=== PATIENT | male | born 1995 | race African-American/Black ===

== ENCOUNTER 2017-09-06 18:08 | Emergency (ER) | payer SELFPAY ==
[~2017-09-06] VITALS: Ht 185.4 cm; Wt 59.6 kg
[2017-09-06] MEDS ORDERED: HYDROcodone/APAP 5/325 TABLET PO STA (19:04)
[2017-09-06] MEDS ORDERED: HYDROcodone/APAP 5/325 TABLET ONE (19:07)
[2017-09-06] MEDS ORDERED: IBUPROFEN 200 MG TABLET ONE (19:07)
[2017-09-06 19:25] VITALS: BP 124/81
[2017-09-06] MEDS ORDERED: IBUPROFEN 200 MG TABLET PO ONE (19:30)
== END 2017-09-06 19:28 | disposition home or self-care (01) ==
LOC: ED 19:20
DX: K08.89 Other specified disorders of teeth and supporting structures (principal); F17.210 Nicotine dependence, cigarettes, uncomplicated
CPT/HCPCS: 99283

== ENCOUNTER 2017-10-07 18:04 | Emergency (ER) | payer SELFPAY ==
[~2017-10-07] VITALS: Ht 185.4 cm; Wt 73.0 kg
[2017-10-07] MEDS ORDERED: BACITRACIN ZINC OINT 500U/GM, 0.9 GM ONE (18:25)
[2017-10-07] MEDS ORDERED: DIPH,PERTUSS(ACELL),TET VAC/PF 0.5 ML IM-VACC ONE ×2 (18:26→18:30)
[2017-10-07 18:43] LABS: BASOPHILS # (AUTO) 0.01 x10^3/uL (0-0.1); BASOPHILS % (AUTO) 0 % (0-1); EOSINOPHILS # (AUTO) 0.07 x10^3/uL (0-0.4); EOSINOPHILS % (AUTO) 1 % (1-7); LYMPHOCYTES # (AUTO) 1.13 x10^3/uL (1-3.4); LYMPHOCYTES % (AUTO) 15 % (22-44); MD NO; MEAN CORPUSCULAR HEMOGLOBIN 31.2 pg (27.5-34.5); MEAN CORPUSCULAR HGB CONC 33.6 g/dL (33.2-36.2); MEAN CORPUSCULAR VOLUME 92.9 fL (81-97); MONOCYTES # (AUTO) 0.07 x10^3/uL (0.2-0.8); MONOCYTES % (AUTO) 1 % (2-9); NEUTROPHILS # (AUTO) 6.08 x10^3/uL (1.8-6.8); NEUTROPHILS % (AUTO) 83 % (42-75); PLATELET COUNT 278 x10^3/uL (130-400); RED BLOOD COUNT 5.04 x10^6/uL (4.38-5.82); RED CELL DISTRIBUTION WIDTH 14.1 % (9.4-14.8)
[2017-10-07 18:55] LABS: ALBUMIN 4.4 g/dL (3.4-5.0); ANION GAP 12 mmol/L (5-15); CALCIUM 9.2 mg/dL (8.5-10.1); CHLORIDE 102 mmol/L (98-107)
[2017-10-07 18:56] LABS: CREATININE 1.18 mg/dL (0.7-1.3)
[2017-10-07] MEDS ORDERED: ACETAMINOPHEN 500 MG TABLET PO ONE (19:30)
[2017-10-07] MEDS ORDERED: ACETAMINOPHEN 500 MG TABLET ONE (19:30)
[2017-10-07 19:38] VITALS: BP 129/67
== END 2017-10-07 19:39 | disposition home or self-care (01) ==
LOC: ED 19:22
DX: S00.81XA Abrasion of other part of head, initial encounter (principal); E16.2 Hypoglycemia, unspecified; F17.210 Nicotine dependence, cigarettes, uncomplicated; Z59.0 Homelessness; W19.XXXA Unspecified fall, initial encounter; Y93.01 Activity, walking, marching and hiking; Y92.89 Other specified places as the place of occurrence of the external cause; Y99.8 Other external cause status
CPT/HCPCS: 36415; 80048; 82040; 82962; 85025; 90471; 90715; 93005